=== PATIENT | male | born 1970 | race African-American/Black ===

== ENCOUNTER 2018-09-28 00:35 | Emergency (ER) | payer MEDICARE, MEDICAID ==
--- NOTE | 2018-09-28 01:50 | ER Document Report ---
ED General - General Chief Complaint: Vomiting Stated Complaint: ETOH Time Seen by Provider: 09/28/18 01:08 Primary Care Provider: KASSANDRA BERG MD [Primary Care Provider] - Follow up as needed Notes: Patient is a 48-year-old male with Down syndrome who presents after drinking alcohol and was intoxicated. Paramedics arrived because he was vomiting. They gave him some Zofran and his vomiting since resolved and is now asking for food and water. History is limited due to the patient's mental retardation. He denies any pain. He has no further complaints at this time. He just continually asks for food. TRAVEL OUTSIDE OF THE [place] IN LAST 30 DAYS: No - Related Data Allergies/Adverse Reactions: No Known Allergies Allergy (Unverified 02/10/14 11:33) Past Medical History - Social History Smoking Status: Unknown if Ever Smoked Frequency of alcohol use: Occasional Drug Abuse: None Lives with: Family Family History: Reviewed & Not Pertinent Patient has suicidal ideation: No Patient has homicidal ideation: No - Past Medical History Cardiac Medical History: Reports: Hx Hypertension Denies: Hx Coronary Artery Disease, Hx Heart Attack Pulmonary Medical History: Denies: Hx Asthma, Hx Bronchitis, Hx COPD, Hx Pneumonia Neurological Medical History: Denies: Hx Cerebrovascular Accident, Hx Seizures Renal/ Medical History: Denies: Hx Peritoneal Dialysis Musculoskeletal Medical History: Denies Hx Arthritis - Immunizations Hx Diphtheria, Pertussis, Tetanus Vaccination: No Review of Systems - Review of Systems -: Yes ROS unobtainable due to patient's medical condition - Limited due to patient having mental retardation Physical Exam - Vital signs Vitals: Temp Pulse Resp BP Pulse Ox 97.8 F 72 18 122/77 98 09/28/18 02:01 09/28/18 02:01 09/28/18 02:01 09/28/18 02:01 09/28/18 02:01 - Notes Notes: General Appearance: Well nourished, alert, no acute distress, no obvious discomfort. Smells of alcohol. Vitals: reviewed, See vital signs table. Head: no swelling or tenderness to the head Eyes: PERRL, EOMI, Conjuctiva clear Mouth: No decreasd moisture Lungs: No wheezing, No rales, No rhonci, No accessory muscle use, good air exchange bilaterally. Heart: Normal rate, Regular rythm, No murmur, no rub Abdomen: Normal BS, soft, No rigidity, No abdominal tenderness, No guarding, no rebound, no abdominal masses, no organomegaly Extremities: strength 5/5 in all extremities, good pulses in all extremities, no swelling or tenderness in the extremities, no edema. Skin: warm, dry, appropriate color, no rash Neuro: speech clear, oriented x 3, she does smell some of alcohol. Speech is garbled however he is able to ask for food and ask for his mother. He does move all extremities on his own without difficulty. Is no obvious or focal neur ologic deficits. He has symmetric facial movement. Course - Re-evaluation Re-evalutation: 09/28/18 01:49 Patient has been eating and drinking here without any difficulty. Has had no further vomiting. He looks and feels well. Patient's mother is at bedside and says he will take him home. Informed him no further alcohol use. I encouraged him return to ER if he has recurrent vomiting or appears unwell. Patient and brother agree with plan and patient will be discharged home. Dictation of this chart was performed using voice recognition software; therefore, there may be some unintended grammatical errors. - Vital Signs Vital signs: Temp Pulse Resp BP Pulse Ox 97.8 F 72 18 122/77 98 09/28/18 02:01 09/28/18 02:01 09/28/18 02:01 09/28/18 02:01 09/28/18 02:01 Discharge - Discharge Clinical Impression: Alcohol intoxication Qualifiers: Complication of substance-induced condition: uncomplicated Qualified Code(s): F10.920 - Alcohol use, unspecified with intoxication, uncomplicated Condition: Good Disposition: HOME, SELF-CARE Additional Instructions: Please avoid all alcohol. Please bring Benito back to the ER immediately if he has recurrent vomiting fevers, or appears unwell. Referrals: KASSANDRA BERG MD [Primary Care Provider] - Follow up as needed
[2018-09-28 02:02] VITALS: BP 122/77
== END 2018-09-28 02:23 | disposition home or self-care (01) ==
LOC: ER 00:35
DX: F10.920 Alcohol use, unspecified with intoxication, uncomplicated (principal); R11.10 Vomiting, unspecified; I10 Essential (primary) hypertension
CPT/HCPCS: 99284